=== PATIENT | female | born 1960 | race Caucasian/White ===

== ENCOUNTER 2023-08-16 11:20 | Emergency (ER) | payer BC, OTHER ==
[~2023-08-16] VITALS: Ht 167.6 cm; Wt 63.5 kg
[2023-08-16 11:46] VITALS: BP 121/74; PULSE 59; RESP 20; TEMP 98; O2SAT 89
[2023-08-16] MEDS ORDERED: ACET-9882 PO (13:45)
[2023-08-16] MEDS ORDERED: CEPH-588 PO (13:45)
[2023-08-16 14:02] VITALS: O2SAT 89
[2023-08-16 14:19] VITALS: BP 121/66; PULSE 65; RESP 20; TEMP 98
== END 2023-08-16 14:18 | disposition home or self-care (01) ==
LOC: MED 11:20
DX: L03.032 Cellulitis of left toe (principal)
CPT/HCPCS: 73630; 99283

== ENCOUNTER 2024-02-15 10:19 | Emergency (ER) | payer BC, OTHER ==
[~2024-02-15] VITALS: Ht 177.8 cm; Wt 58.5 kg
[~2024-02-15 10:19] MED LIST: ACET-9882 PO; CEPH-588 PO
[2024-02-15 10:27] VITALS: BP 187/110; PULSE 110; RESP 16; TEMP 98.6; O2SAT 96
[2024-02-15 11:29] LABS: BASOPHILS # (AUTO) 0.1 K/uL (0.00-0.22); BASOPHILS % (AUTO) 0.8 % (0.0-2.0); EOSINOPHILS # (AUTO) 0.1 K/uL (0-0.4); EOSINOPHILS % (AUTO) 0.8 % (0.0-4.0); HEMATOCRIT 36.2 % (36-48); HEMOGLOBIN 12.4 g/dL (12.0-16.0); LYMPHOCYTES # (AUTO) 2.3 K/uL (2.5-16.5); LYMPHOCYTES % (AUTO) 31.1 % (20.5-51.1); MEAN CORPUSCULAR HEMOGLOBIN 29 pg (27-31); MEAN CORPUSCULAR HGB CONC 34 g/dL (33-37); MEAN CORPUSCULAR VOLUME 84.3 fL (80-94); MONOCYTES # (AUTO) 0.6 K/uL (0.8-1.0); MONOCYTES % (AUTO) 8.2 % (1.7-9.3); NEUTROPHILS # (AUTO) 4.4 K/uL (1.8-7.7); NEUTROPHILS % (AUTO) 59.1 % (42.2-75.2); PLATELET COUNT (AUTO) 260 K/uL (140-450); RED BLOOD CELL COUNT(AUTO) 4.29 MIL/uL (4.20-5.40); RED CELL DISTRIBUTION WIDTH 13.8 % (11.6-13.7); WHITE BLOOD COUNT (AUTO) 7.5 K/uL (4.8-10.8)
[2024-02-15 11:40] LABS: ANION GAP 18.3 (8-16); CALCIUM 9.7 mg/dL (8.5-10.1); CARBON DIOXIDE 26.9 mmol/L (21-32); CREATININE 1.3 mg/dL (0.6-1.3); POTASSIUM 4.2 mmol/L (3.5-5.1)
[2024-02-15 12:02] LABS: ALANINE AMINOTRANSFERASE 14 U/L (12-78); ALBUMIN 4.6 g/dL (3.4-5.0); ALKALINE PHOSPHATASE 107 U/L (50-136); ASPARTATE AMINOTRANSFERASE 19 U/L (15-37); BILIRUBIN,DIRECT 0.1 mg/dL (0.0-0.3); TOTAL BILIRUBIN 0.6 mg/dL (0.0-1.0); TOTAL PROTEIN, SERUM 8.4 g/dL (6.4-8.2)
[2024-02-15 14:47] VITALS: BP 154/90; PULSE 71; RESP 16; TEMP 98.6; O2SAT 95
== END 2024-02-15 14:45 | disposition home or self-care (01) ==
LOC: MED 10:19
DX: I10 Essential (primary) hypertension (principal); N28.9 Disorder of kidney and ureter, unspecified; Z86.73 Personal history of transient ischemic attack (TIA), and cerebral infarction without residual deficits; Z88.0 Allergy status to penicillin; Z88.8 Allergy status to other drugs, medicaments and biological substances; Z79.899 Other long term (current) drug therapy; Z88.5 Allergy status to narcotic agent
CPT/HCPCS: 36415; 70450; 71045; 80048; 80076; 84484; 85025; 93005; 99285

== ENCOUNTER 2024-02-24 09:38 | Observation (INO) | payer BC ==
[~2024-02-24] VITALS: Ht 160 cm; Wt 59.0 kg
[2024-02-24 09:39] VITALS: BP 168/76; PULSE 76; RESP 18; TEMP 98.5; O2SAT 98
[2024-02-24] MEDS: HALOPERIDOL IM 5 MG/ML VIAL IM ONE (10:06)
[2024-02-24] MEDS ORDERED: LORazepam 2 MG/ML VIAL ONE (10:07)
[2024-02-24 10:10] VITALS: O2SAT 98
[2024-02-24] MEDS: LORazepam 2 MG/ML VIAL IM ONE ×2 (11:13)
[2024-02-24 12:37] LABS: BASOPHILS # (AUTO) 0.1 K/uL (0.00-0.22); BASOPHILS % (AUTO) 0.8 % (0.0-2.0); EOSINOPHILS # (AUTO) 0.1 K/uL (0-0.4); HEMATOCRIT 34.9 % (36-48); LYMPHOCYTES # (AUTO) 1.6 K/uL (2.5-16.5); LYMPHOCYTES % (AUTO) 23.4 % (20.5-51.1); MEAN CORPUSCULAR HEMOGLOBIN 29 pg (27-31); MEAN CORPUSCULAR HGB CONC 34 g/dL (33-37); MEAN CORPUSCULAR VOLUME 84.8 fL (80-94); MONOCYTES # (AUTO) 0.7 K/uL (0.8-1.0); MONOCYTES % (AUTO) 10.2 % (1.7-9.3); NEUTROPHILS # (AUTO) 4.3 K/uL (1.8-7.7); NEUTROPHILS % (AUTO) 63.6 % (42.2-75.2); PLATELET COUNT (AUTO) 304 K/uL (140-450); RED BLOOD CELL COUNT(AUTO) 4.11 MIL/uL (4.20-5.40); RED CELL DISTRIBUTION WIDTH 13.6 % (11.6-13.7); WHITE BLOOD COUNT (AUTO) 6.7 K/uL (4.8-10.8)
[2024-02-24 13:01] LABS: LACTIC ACID 0.6 mmol/L (0.4-2.0)
[2024-02-24 13:12] LABS: ALANINE AMINOTRANSFERASE 17 U/L (12-78); ALBUMIN 4.1 g/dL (3.4-5.0); ALCOHOL, BLOOD < 3 mg/dL (<10); ALKALINE PHOSPHATASE 101 U/L (50-136); ANION GAP 15.6 (8-16); ASPARTATE AMINOTRANSFERASE 29 U/L (15-37); CALCIUM 9.6 mg/dL (8.5-10.1); CARBON DIOXIDE 28.4 mmol/L (21-32); CHLORIDE 92 mmol/L (98-107); GFR ARICAN-AMERICAN 72 mL/min (>90); GFR NON ARICAN-AMERICAN 60 mL/min (>90); GLUCOSE 100 mg/dL (74-106); SODIUM SERUM 132 mmol/L (136-145); TOTAL BILIRUBIN 0.5 mg/dL (0.0-1.0); TOTAL PROTEIN, SERUM 7.7 g/dL (6.4-8.2); UREA NITROGEN, BLOOD 12 mg/dL (7-18)
[2024-02-24 13:16] LABS: ACETAMINOPHEN < 0.5 ug/ml (10-30); SALICYLATE < 2.8 mg/dL (2.8-20.0)
[2024-02-24 13:39] VITALS: O2SAT 98
[2024-02-24] MEDS ORDERED: LISI-486 PO (14:11)
[2024-02-24] MEDS ORDERED: HYDR12.51 PO (14:11)
[2024-02-24] MEDS ORDERED: AMLO5TAB PO (14:11)
[2024-02-24] MEDS ORDERED: ARIP5TAB8 PO (14:11)
[2024-02-24] MEDS ORDERED: PROP80TA PO (14:11)
[2024-02-24] MEDS ORDERED: BUS5 PO (14:11)
[2024-02-24] MEDS ORDERED: VENL-151 PO (14:11)
[2024-02-24] MEDS ORDERED: TRAZ-343 PO (14:11)
[2024-02-24] MEDS ORDERED: CLON-1202 PO (14:11)
[2024-02-24] MEDS ORDERED: MODA200T39 PO (14:11)
[2024-02-24] MEDS ORDERED: KCL 20 MEQ IN 100 mL PREMIX 200 ML IV PRN (15:15)
[2024-02-24] MEDS ORDERED: MAG SULF 2000 MG/WATER PREMIX 50 ML IV PRN (15:15)
[2024-02-24] MEDS ORDERED: ONDANSETRON 4 MG/2 ML VIAL IVP PRN (15:15)
[2024-02-24] MEDS ORDERED: ACETAMINOPHEN 325 MG TAB PO PRN (15:15)
[2024-02-24] MEDS ORDERED: POTASSIUM CHLORIDE 10 MEQ TABER PO PRN (15:15)
[2024-02-24] MEDS ORDERED: VANCOMYCIN 1,000 MG VIAL ONE (15:39)
[2024-02-24] MEDS: VANCOMYCIN 1,000 MG in DEXTROSE 5% 250 ML IV ONE (16:00)
[2024-02-24 16:04] LABS: APPEARANCE,URINE CLEAR (CLEAR); BILIRUBIN,URINE NEGATIVE (NEGATIVE); BLOOD, URINE NEGATIVE (NEGATIVE); COLOR,URINE YELLOW (YELLOW); LEUKOCYTE ESTERASE ,URINE NEGATIVE (NEGATIVE); NITRITE, URINE NEGATIVE (NEGATIVE); PROTEIN,URINE TRACE (NEGATIVE); UGLUCOSE NEGATIVE (NEGATIVE); UROBILINOGEN,URINE 0.2 EU/dL (0.2 - 1)
[2024-02-24 16:19] VITALS: O2SAT 98
[2024-02-24 16:24] LABS: AMPHETAMINE, URINE NEGATIVE ng/ml (NEG <=1000); BARBITURATE, URINE NEGATIVE ng/ml (NEG <=200); BENZODIAZEPINE, URINE POSITIVE ng/mL (NEG <=200); CANNABINOID, URINE POSITIVE ng/mL (NEG <=50); COCAINE, URINE NEGATIVE ng/mL (NEG <=300); OPIATE, URINE NEGATIVE ng/mL (NEG <=2000); PHENCYCLIDINE SCREEN,URINE NEGATIVE ng/mL (NEG <=25)
[2024-02-24 20:00] VITALS: BP 154/72; PULSE 74; PULSE 92; RESP 18; TEMP 98.5; O2SAT 98
[2024-02-25] VITALS: BP 93/63; PULSE 86; PULSE 88; RESP 18; TEMP 96.7; O2SAT 97
[2024-02-25 04:00] VITALS: BP 100/66; PULSE 92; RESP 18; TEMP 97; O2SAT 95
[2024-02-25 07:03] LABS: BASOPHILS # (AUTO) 0.1 K/uL (0.00-0.22); BASOPHILS % (AUTO) 0.8 % (0.0-2.0); EOSINOPHILS # (AUTO) 0.2 K/uL (0-0.4); EOSINOPHILS % (AUTO) 2.1 % (0.0-4.0); HEMOGLOBIN 11.7 g/dL (12.0-16.0); LYMPHOCYTES # (AUTO) 1.8 K/uL (2.5-16.5); LYMPHOCYTES % (AUTO) 25.4 % (20.5-51.1); MEAN CORPUSCULAR HEMOGLOBIN 29 pg (27-31); MEAN CORPUSCULAR HGB CONC 34 g/dL (33-37); MEAN CORPUSCULAR VOLUME 84.6 fL (80-94); MONOCYTES # (AUTO) 0.8 K/uL (0.8-1.0); MONOCYTES % (AUTO) 10.8 % (1.7-9.3); NEUTROPHILS # (AUTO) 4.3 K/uL (1.8-7.7); NEUTROPHILS % (AUTO) 60.9 % (42.2-75.2); PLATELET COUNT (AUTO) 321 K/uL (140-450); RED BLOOD CELL COUNT(AUTO) 4.02 MIL/uL (4.20-5.40); WHITE BLOOD COUNT (AUTO) 7.1 K/uL (4.8-10.8)
[2024-02-25 07:27] LABS: ANION GAP 12.6 (8-16); CALCIUM 9.1 mg/dL (8.5-10.1); CARBON DIOXIDE 29.6 mmol/L (21-32); CREATININE 1.4 mg/dL (0.6-1.3); POTASSIUM 4.2 mmol/L (3.5-5.1)
[2024-02-25 08:00] VITALS: BP 119/76; PULSE 81; PULSE 96; RESP 18; TEMP 97.8; O2SAT 97
[2024-02-25] MEDS: MAGNESIUM OXIDE 400 MG TAB PO PRN (11:00)
[2024-02-25 12:00] VITALS: BP 137/89; PULSE 105; PULSE 86; RESP 18; TEMP 97; O2SAT 98
== END 2024-02-25 13:50 | disposition home or self-care (01) ==
LOC: MED 09:38 → MTU 15:21
PROVIDERS: ADMIT Internal Medicine; ATTEND Internal Medicine
DX: G92.9 Unspecified toxic encephalopathy (principal); F12.90 Cannabis use, unspecified, uncomplicated; I10 Essential (primary) hypertension; F20.9 Schizophrenia, unspecified; Z88.0 Allergy status to penicillin; Z79.899 Other long term (current) drug therapy; Z86.73 Personal history of transient ischemic attack (TIA), and cerebral infarction without residual deficits
CPT/HCPCS: 36415; 70450; 80048; 80053; 80305; 81003; 82140; 83605; 83735; 84484; 85025; 87040; 93005; 96365; 96372; 99285; G0378; G0480; G0482; J1630; J2060; J3370

== ENCOUNTER 2024-03-02 20:25 | Inpatient (IN) | payer BC ==
[~2024-03-02] VITALS: Ht 167.6 cm; Wt 63.5 kg
[~2024-03-02 20:25] MED LIST changes: +AMLO5TAB PO; +ARIP5TAB8 PO; +BUS5 PO; -CEPH-588 PO; +CLON-1202 PO; +HYDR12.51 PO; +LISI-486 PO; +MODA200T39 PO; +PROP80TA PO; +TRAZ-343 PO; +VENL-151 PO
[2024-03-02 21:06] LABS: BASOPHILS # (AUTO) 0.1 K/uL (0.00-0.22); BASOPHILS % (AUTO) 1.2 % (0.0-2.0); EOSINOPHILS # (AUTO) 0.1 K/uL (0-0.4); EOSINOPHILS % (AUTO) 1.9 % (0.0-4.0); HEMATOCRIT 29.6 % (36-48); LYMPHOCYTES # (AUTO) 2.7 K/uL (2.5-16.5); LYMPHOCYTES % (AUTO) 40.4 % (20.5-51.1); MEAN CORPUSCULAR HEMOGLOBIN 29 pg (27-31); MEAN CORPUSCULAR HGB CONC 34 g/dL (33-37); MEAN CORPUSCULAR VOLUME 86.2 fL (80-94); MONOCYTES # (AUTO) 0.8 K/uL (0.8-1.0); MONOCYTES % (AUTO) 11.8 % (1.7-9.3); NEUTROPHILS % (AUTO) 44.7 % (42.2-75.2); PLATELET COUNT (AUTO) 320 K/uL (140-450); RED BLOOD CELL COUNT(AUTO) 3.43 MIL/uL (4.20-5.40); RED CELL DISTRIBUTION WIDTH 13.7 % (11.6-13.7); WHITE BLOOD COUNT (AUTO) 6.7 K/uL (4.8-10.8)
[2024-03-02] MEDS: NACL 0.9% 1,000 ML IV ONE ×2 (21:06→21:07)
[2024-03-02 21:08] VITALS: BP 55/14; PULSE 66; RESP 14; TEMP 97.1; O2SAT 99
[2024-03-02 21:12] LABS: APPEARANCE,URINE CLEAR (CLEAR); BILIRUBIN,URINE NEGATIVE (NEGATIVE); BLOOD, URINE NEGATIVE (NEGATIVE); COLOR,URINE YELLOW (YELLOW); LEUKOCYTE ESTERASE ,URINE NEGATIVE (NEGATIVE); NITRITE, URINE NEGATIVE (NEGATIVE); PROTEIN,URINE NEGATIVE (NEGATIVE); UGLUCOSE NEGATIVE (NEGATIVE); UROBILINOGEN,URINE 0.2 EU/dL (0.2 - 1)
[2024-03-02 21:23] LABS: ANION GAP 11.2 (8-16); CALCIUM 8.3 mg/dL (8.5-10.1); CARBON DIOXIDE 29.8 mmol/L (21-32); CREATININE 1.7 mg/dL (0.6-1.3)
[2024-03-02 21:24] LABS: INR 1.16 (0.8-1.2); PARTIAL THROMBOPLASTIN TIME 21.4 secs (22-35.6); PROTHROMBIN TIME 12.1 secs (10.8-13.4)
[2024-03-02 21:30] LABS: BLOOD GAS PCO2 45.8 mmHg (35-45); BLOOD GAS PH 7.346 (7.35-7.45)
[2024-03-02 21:31] LABS: BLOOD GAS BASE EXCESS -1.3 mmol/L (-2.0-2.0); BLOOD GAS HCO3 24.5 mmol/L (22-26); BLOOD GAS O2 SAT% 95.2 % (92.0-98.5)
[2024-03-02 21:37] LABS: ALANINE AMINOTRANSFERASE 17 U/L (12-78); ALBUMIN 3.1 g/dL (3.4-5.0); ALCOHOL, BLOOD < 3 mg/dL (<10); ALKALINE PHOSPHATASE 94 U/L (50-136); ASPARTATE AMINOTRANSFERASE 22 U/L (15-37); BILIRUBIN,DIRECT 0.1 mg/dL (0.0-0.3); CREATINE KINASE, TOTAL 80 U/L (26-192); THYROID STIMULATING HORMONE 5.88 uIU/mL (0.34-3.74); TOTAL BILIRUBIN 0.2 mg/dL (0.0-1.0); TOTAL PROTEIN, SERUM 5.9 g/dL (6.4-8.2)
[2024-03-02 21:38] LABS: LACTIC ACID 1.4 mmol/L (0.4-2.0)
[2024-03-02 22:06] LABS: FLU A ANTIGEN negative (NEGATIVE); FLU B ANTIGEN NEGATIVE (NEGATIVE)
[2024-03-02] MEDS ORDERED: POTASSIUM CHLORIDE 10 MEQ TABER PO PRN (23:40)
[2024-03-02] MEDS ORDERED: KCL 20 MEQ IN 100 mL PREMIX 200 ML IV PRN (23:40)
[2024-03-02] MEDS ORDERED: ONDANSETRON 4 MG/2 ML VIAL IVP PRN (23:40)
[2024-03-02 23:56] LABS: AMPHETAMINE, URINE NEGATIVE ng/ml (NEG <=1000); BARBITURATE, URINE NEGATIVE ng/ml (NEG <=200); BENZODIAZEPINE, URINE NEGATIVE ng/mL (NEG <=200); CANNABINOID, URINE POSITIVE ng/mL (NEG <=50); COCAINE, URINE NEGATIVE ng/mL (NEG <=300); OPIATE, URINE NEGATIVE ng/mL (NEG <=2000); PHENCYCLIDINE SCREEN,URINE NEGATIVE ng/mL (NEG <=25)
[2024-03-02] MEDS: NACL 0.9% 1,000 ML IV SCH (23:57)
[2024-03-02] MEDS: ALBUMIN HUMAN 25% 50 ML IV ONE (23:58)
[2024-03-03] MEDS ORDERED: VENL25TA PO (00:12)
[2024-03-03] MEDS ORDERED: CLON-1201 PO (00:12)
[2024-03-03] MEDS ORDERED: HYDR25TA32 PO (00:12)
[2024-03-03] MEDS ORDERED: QUET300T1 PO (00:12)
[2024-03-03] MEDS ORDERED: LISI10TA30 PO (00:12)
[2024-03-03] MEDS ORDERED: ABI10 PO (00:12)
[2024-03-03 02:00] VITALS: BP 135/83; PULSE 68; RESP 18; TEMP 96.7; O2SAT 98
[2024-03-03 07:06] LABS: BASOPHILS # (AUTO) 0.1 K/uL (0.00-0.22); BASOPHILS % (AUTO) 1.1 % (0.0-2.0); EOSINOPHILS # (AUTO) 0.1 K/uL (0-0.4); EOSINOPHILS % (AUTO) 1.5 % (0.0-4.0); HEMOGLOBIN 10.5 g/dL (12.0-16.0); LYMPHOCYTES # (AUTO) 1.8 K/uL (2.5-16.5); LYMPHOCYTES % (AUTO) 29.2 % (20.5-51.1); MEAN CORPUSCULAR HEMOGLOBIN 29 pg (27-31); MEAN CORPUSCULAR HGB CONC 34 g/dL (33-37); MEAN CORPUSCULAR VOLUME 85.7 fL (80-94); MONOCYTES # (AUTO) 0.7 K/uL (0.8-1.0); NEUTROPHILS # (AUTO) 3.6 K/uL (1.8-7.7); NEUTROPHILS % (AUTO) 57.2 % (42.2-75.2); PLATELET COUNT (AUTO) 301 K/uL (140-450); RED BLOOD CELL COUNT(AUTO) 3.62 MIL/uL (4.20-5.40); RED CELL DISTRIBUTION WIDTH 13.9 % (11.6-13.7); WHITE BLOOD COUNT (AUTO) 6.3 K/uL (4.8-10.8)
[2024-03-03 07:19] LABS: ALBUMIN 3.5 g/dL (3.4-5.0); ANION GAP 13.1 (8-16); CALCIUM 8.5 mg/dL (8.5-10.1); CARBON DIOXIDE 28.8 mmol/L (21-32); CREATININE 1.2 mg/dL (0.6-1.3); MAGNESIUM 1.4 mg/dL (1.8-2.4); POTASSIUM 3.9 mmol/L (3.5-5.1); TOTAL BILIRUBIN 0.3 mg/dL (0.0-1.0); TOTAL PROTEIN, SERUM 6.5 g/dL (6.4-8.2)
[2024-03-03 08:00] VITALS: BP 130/72; PULSE 68; PULSE 74; RESP 18; RESP 20; TEMP 94.7; O2SAT 96; O2SAT 99
[2024-03-03] MEDS: DOCUSATE SODIUM 100 MG GELCAP PO SCH (10:18)
[2024-03-03] MEDS: MAG SULF 2000 MG/WATER PREMIX 50 ML IV PRN (10:19)
[2024-03-03 20:00] VITALS: BP 119/71; PULSE 86; RESP 18; TEMP 97.9; O2SAT 96
[2024-03-04] MEDS: oxyCODONE/APAP 5/325 MG 1 TAB TAB PO PRN (00:12)
[2024-03-04 04:00] VITALS: BP 132/80; PULSE 85; RESP 18; TEMP 97.4; O2SAT 98
[2024-03-04 07:13] LABS: BASOPHILS # (AUTO) 0.2 K/uL (0.00-0.22); BASOPHILS % (AUTO) 2.5 % (0.0-2.0); EOSINOPHILS # (AUTO) 0.1 K/uL (0-0.4); EOSINOPHILS % (AUTO) 1.4 % (0.0-4.0); HEMATOCRIT 31.3 % (36-48); HEMOGLOBIN 10.7 g/dL (12.0-16.0); LYMPHOCYTES # (AUTO) 2.2 K/uL (2.5-16.5); LYMPHOCYTES % (AUTO) 34.7 % (20.5-51.1); MEAN CORPUSCULAR HEMOGLOBIN 29 pg (27-31); MEAN CORPUSCULAR HGB CONC 34 g/dL (33-37); MEAN CORPUSCULAR VOLUME 86.6 fL (80-94); MONOCYTES # (AUTO) 0.4 K/uL (0.8-1.0); MONOCYTES % (AUTO) 6.1 % (1.7-9.3); NEUTROPHILS # (AUTO) 3.5 K/uL (1.8-7.7); NEUTROPHILS % (AUTO) 55.3 % (42.2-75.2); PLATELET COUNT (AUTO) 243 K/uL (140-450); RED BLOOD CELL COUNT(AUTO) 3.62 MIL/uL (4.20-5.40); WHITE BLOOD COUNT (AUTO) 6.4 K/uL (4.8-10.8)
[2024-03-04 07:34] LABS: ALBUMIN 3.2 g/dL (3.4-5.0); ANION GAP 10.3 (8-16); CALCIUM 8.8 mg/dL (8.5-10.1); CARBON DIOXIDE 28.9 mmol/L (21-32); CREATININE 1.3 mg/dL (0.6-1.3); MAGNESIUM 1.9 mg/dL (1.8-2.4); POTASSIUM 4.2 mmol/L (3.5-5.1); TOTAL BILIRUBIN 0.3 mg/dL (0.0-1.0); TOTAL PROTEIN, SERUM 6.2 g/dL (6.4-8.2)
[2024-03-04 08:00] VITALS: BP 147/83; PULSE 85; RESP 18; TEMP 97.5; O2SAT 97
[2024-03-04 16:00] VITALS: BP 169/111; PULSE 102; RESP 18; TEMP 97.6; O2SAT 100
[2024-03-04 20:00] VITALS: BP 145/80; PULSE 85; RESP 18; TEMP 97.8; O2SAT 97
[2024-03-04] MEDS: HYDROcodone/APAP 10/325 MG 1 TAB TAB PO PRN (22:00)
[2024-03-05 04:00] VITALS: BP 148/94; PULSE 86; RESP 18; TEMP 97.5; O2SAT 98
[2024-03-05 05:15] LABS: BASOPHILS # (AUTO) 0.1 K/uL (0.00-0.22); BASOPHILS % (AUTO) 1.6 % (0.0-2.0); EOSINOPHILS # (AUTO) 0.1 K/uL (0-0.4); HEMATOCRIT 31.5 % (36-48); HEMOGLOBIN 10.9 g/dL (12.0-16.0); LYMPHOCYTES % (AUTO) 28.4 % (20.5-51.1); MEAN CORPUSCULAR HEMOGLOBIN 30 pg (27-31); MEAN CORPUSCULAR HGB CONC 35 g/dL (33-37); MEAN CORPUSCULAR VOLUME 85.9 fL (80-94); MONOCYTES # (AUTO) 0.7 K/uL (0.8-1.0); MONOCYTES % (AUTO) 9.7 % (1.7-9.3); NEUTROPHILS # (AUTO) 4.2 K/uL (1.8-7.7); NEUTROPHILS % (AUTO) 59.3 % (42.2-75.2); PLATELET COUNT (AUTO) 208 K/uL (140-450); RED BLOOD CELL COUNT(AUTO) 3.67 MIL/uL (4.20-5.40); RED CELL DISTRIBUTION WIDTH 13.9 % (11.6-13.7)
[2024-03-05 05:36] LABS: ANION GAP 13.5 (8-16); CALCIUM 9.1 mg/dL (8.5-10.1); CARBON DIOXIDE 28.9 mmol/L (21-32); POTASSIUM 4.4 mmol/L (3.5-5.1)
[2024-03-05 05:37] LABS: ALBUMIN 3.7 g/dL (3.4-5.0); MAGNESIUM 1.6 mg/dL (1.8-2.4); TOTAL BILIRUBIN 8.4 mg/dL (0.0-1.0); TOTAL PROTEIN, SERUM 6.8 g/dL (6.4-8.2)
[2024-03-05 08:00] VITALS: O2SAT 98
[2024-03-05] MEDS: ALPRAZolam 0.5 MG TAB PO PRN (10:17)
[2024-03-05 11:15] VITALS: BP 149/99; PULSE 90; RESP 18; TEMP 98.2; O2SAT 98
[2024-03-05] MEDS: ACETAMINOPHEN 325 MG TAB PO PRN (15:29)
[2024-03-05 20:00] VITALS: BP 166/93; PULSE 99; RESP 20; TEMP 97; O2SAT 98
[2024-03-06] MEDS: hydrALAZINE 25 MG TAB PO PRN (00:12)
[2024-03-06 02:55] LABS: APPEARANCE,URINE CLEAR (CLEAR); BILIRUBIN,URINE NEGATIVE (NEGATIVE); BLOOD, URINE NEGATIVE (NEGATIVE); COLOR,URINE YELLOW (YELLOW); LEUKOCYTE ESTERASE ,URINE TRACE (NEGATIVE); NITRITE, URINE NEGATIVE (NEGATIVE); PROTEIN,URINE NEGATIVE (NEGATIVE); UGLUCOSE NEGATIVE (NEGATIVE); UROBILINOGEN,URINE 0.2 EU/dL (0.2 - 1)
[2024-03-06 03:00] LABS: BACTERIA,URINE 10-30 (MOD) /HPF (None Seen); MUCUS,URINE 1+ /LPF (None Seen); RBC,URINE 0-5 /HPF (0-5); SQUAMOUS EPITHELIAL CELL,UR 0-3 (FEW) /LPF (0-3 (FEW))
[2024-03-06 04:00] VITALS: BP 150/90; PULSE 119; RESP 20; TEMP 97.6; O2SAT 98
[2024-03-06] MEDS: MAGNESIUM OXIDE 400 MG TAB PO PRN (05:06)
[2024-03-06 05:24] LABS: BASOPHILS % (AUTO) 0.6 % (0.0-2.0); EOSINOPHILS # (AUTO) 0.1 K/uL (0-0.4); EOSINOPHILS % (AUTO) 1.2 % (0.0-4.0); HEMATOCRIT 33.2 % (36-48); HEMOGLOBIN 11.5 g/dL (12.0-16.0); LYMPHOCYTES # (AUTO) 1.9 K/uL (2.5-16.5); MEAN CORPUSCULAR HEMOGLOBIN 29 pg (27-31); MEAN CORPUSCULAR HGB CONC 35 g/dL (33-37); MEAN CORPUSCULAR VOLUME 85.2 fL (80-94); MONOCYTES # (AUTO) 0.7 K/uL (0.8-1.0); MONOCYTES % (AUTO) 10.3 % (1.7-9.3); NEUTROPHILS # (AUTO) 4.1 K/uL (1.8-7.7); NEUTROPHILS % (AUTO) 59.9 % (42.2-75.2); PLATELET COUNT (AUTO) 306 K/uL (140-450); RED CELL DISTRIBUTION WIDTH 13.7 % (11.6-13.7); WHITE BLOOD COUNT (AUTO) 6.9 K/uL (4.8-10.8)
[2024-03-06 05:48] LABS: ANION GAP 12.6 (8-16); CALCIUM 9.7 mg/dL (8.5-10.1); CARBON DIOXIDE 29.7 mmol/L (21-32); MAGNESIUM 1.5 mg/dL (1.8-2.4); POTASSIUM 4.3 mmol/L (3.5-5.1); TOTAL BILIRUBIN 0.4 mg/dL (0.0-1.0); TOTAL PROTEIN, SERUM 7.3 g/dL (6.4-8.2)
[2024-03-06 08:22] VITALS: PULSE 99; RESP 20; O2SAT 98
[2024-03-06 11:47] VITALS: BP 125/68; PULSE 72; RESP 20; TEMP 97.9
== END 2024-03-06 13:48 | disposition home or self-care (01) | DRG 312 ==
LOC: MED 20:25 → MTU 23:42
PROVIDERS: ADMIT Hospitalist; ATTEND Hospitalist
DX: I95.1 Orthostatic hypotension (principal); N17.9 Acute kidney failure, unspecified; D64.9 Anemia, unspecified; Z20.822 Contact with and (suspected) exposure to COVID-19; F20.9 Schizophrenia, unspecified; I10 Essential (primary) hypertension; Z88.0 Allergy status to penicillin; Z88.1 Allergy status to other antibiotic agents; Z88.5 Allergy status to narcotic agent; Z91.040 Latex allergy status; Z79.899 Other long term (current) drug therapy; Z86.73 Personal history of transient ischemic attack (TIA), and cerebral infarction without residual deficits
CPT/HCPCS: 36415; 36600; 70450; 71045; 76700; 80048; 80053; 80076; 80305; 81001; 81003; 82550; 82803; 83605; 83735; 83880; 84443; 84484; 85025; 85610; 85730; 87081; 87086; 96361; 96365; 97110; 97116; 97163-GP; 97530; 99291; G0482; J3475; P9046